=== PATIENT | male | born 1985 | race Caucasian/White ===

== ENCOUNTER 2024-10-16 14:25 | Inpatient (IN) | payer OTHER ==
[~2024-10-16] VITALS: Ht 172.7 cm; Wt 81.6 kg
[~2024-10-16 14:25] MED LIST: MVI, ADULT NO.1 10 ML, FOLIC ACID 1 MG, THIAMINE HCL 100 MG in SODIUM CHLORIDE 0.9% 1,0... IV ONE
[2024-10-16 14:28] VITALS: O2SAT 98
[2024-10-16] MEDS: SODIUM CHLORIDE 0.9% 1,000 ML IV ONE (14:45)
[2024-10-16] MEDS: CHLORDIAZEPOXIDE 25MG CAPSULE PO ONE (14:45)
[2024-10-16] MEDS: FOLIC ACID 1 MG, THIAMINE HCL 100 MG, MVI, ADULT NO.1 10 ML in DEXTROSE 5% WATER 1,000 ML IV ONE (16:30)
[2024-10-16] MEDS: LORAZEPAM 2MG/ML INJ IV ONE (16:33)
[2024-10-16] MEDS ORDERED: MAGNESIUM/ALUMINUM HYDROXIDE/SIMETHICONE 30ML UDC PO PRN (22:00)
[2024-10-16] MEDS ORDERED: ACETAMINOPHEN 325MG TABLET PO PRN ×2 (22:00)
[2024-10-16] MEDS ORDERED: ONDANSETRON HCL 4MG/2ML INJ IV PRN (22:00)
[2024-10-16] MEDS ORDERED: DOCUSATE SODIUM 100MG CAPSULE PO PRN (22:00)
[2024-10-16] MEDS ORDERED: IPRATROPIUM/ALBUTEROL 0.5-3(2.5)MG/3ML NEB HHN PRN (22:00)
[2024-10-16] MEDS ORDERED: LORAZEPAM 2MG/ML INJ IV PRN ×2 (22:00)
[2024-10-16] MEDS ORDERED: GUAIFENESIN 200MG/10ML SUGAR FREE UDC PO PRN (22:00)
[2024-10-16] MEDS ORDERED: CLONIDINE 0.1MG TABLET PO PRN (22:00)
[2024-10-16 22:31] LABS: BASOPHILS % 0.4 % (0.0-2.0); HEMOGLOBIN. 14.7 g/dL (14.0-18.0); LYMPHOCYTES % 8.2 % (20.0-50.0); MEAN CORPUSCULAR HGB CONC 35.1 g/dL (31.0-37.0); MEAN CORPUSCULAR VOLUME 82.7 fL (80.0-94.0); MONOCYTES % 9.3 % (2.0-8.0); NEUTROPHILS % 82.1 % (40.0-76.0); RED BLOOD CELL COUNT 5.08 mill/uL (4.7-6.1); WHITE BLOOD COUNT 11.9 x1000/uL (4.5-11.0)
[2024-10-16 22:40] LABS: CHLORIDE 93 mEq/L (98-107); SODIUM 130 mEq/L (136-145)
[2024-10-16 22:41] LABS: CALCIUM 8.6 mg/dL (8.7-10.4); CARBON DIOXIDE 26 mEq/L (21-32)
[2024-10-16 22:44] LABS: DIFFERENTIAL COMMENT 1
[2024-10-16 22:46] LABS: CREATININE 0.5 mg/dL (0.6-1.3); GLUCOSE 85 mg/dL (70-105); UREA NITROGEN BLOOD 8 mg/dL (9-23)
[2024-10-16 22:47] LABS: ALANINE AMINOTRANSFERASE 72 IU/L (10-49)
[2024-10-16 22:48] LABS: ALBUMIN 4.1 g/dL (3.2-4.8); AMMONIA 26 uMol/L (<32); ASPARTATE AMINOTRANSFERASE 285 IU/L (<34); BILIRUBIN TOTAL 1.2 mg/dL (0.1-1.0); PHOSPHORUS 1.4 mg/dL (2.5-4.9); PROTEIN TOTAL 6.4 g/dL (6.0-8.3); PROTHROMBIN TIME 11.3 sec (9.6-11.0)
[2024-10-16 22:55] LABS: ETHANOL BLOOD < 10 mg/dL (<10); POTASSIUM 2.6 mEq/L (3.5-5.1)
[2024-10-16] MEDS: THIAMINE HCL 100MG TABLET PO SCH (22:55)
[2024-10-16] MEDS: PANTOPRAZOLE SODIUM 40 MG/VIAL IV SCH (22:55)
[2024-10-16 23:03] LABS: CREATINE KINASE 17721 IU/L (46-171); HEPATITIS B SURFACE ANTIGEN NEGATIVE (Negative)
[2024-10-16 23:11] LABS: LACTIC ACID 2.1 mmol/L (0.4-2.0)
[2024-10-16 23:17] LABS: MEAN PLATELET VOLUME 8.2 fl (7.4-10.4); PLATELET 63 x1000/uL (130-400)
[2024-10-16 23:23] LABS: HEPATITIS A AB IGM NEGATIVE (Negative)
[2024-10-16 23:24] LABS: HEPATITIS B CORE AB IGM NEGATIVE (Negative); HEPATITIS C AB NON REACTIVE (Neg) (Negative)
[2024-10-16] MEDS: POTASSIUM CHLORIDE 20MEQ TABLET SR PO NR (23:36)
[2024-10-17] MEDS: POTASSIUM PHOSPHATE 30 MMOL in DEXT 5% WATER 500 ML IV NR (01:00)
[2024-10-17] MEDS: CHLORDIAZEPOXIDE 5 MG CAPSULE PO SCH (06:36)
[2024-10-17 10:35] LABS: CHLORIDE 95 mEq/L (98-107); POTASSIUM 2.9 mEq/L (3.5-5.1); SODIUM 131 mEq/L (136-145)
[2024-10-17 10:36] LABS: CALCIUM 8.8 mg/dL (8.7-10.4); CARBON DIOXIDE 24 mEq/L (21-32)
[2024-10-17 10:41] LABS: CREATININE 0.6 mg/dL (0.6-1.3); GLUCOSE 113 mg/dL (70-105); UREA NITROGEN BLOOD 7 mg/dL (9-23)
[2024-10-17 10:42] LABS: TRIGLYCERIDE 93 mg/dL (0-150)
[2024-10-17 10:43] LABS: LDL CHOLESTEROL 53 mg/dL (5-100)
[2024-10-17 10:44] LABS: CHOLESTEROL 179 mg/dL (<200); HDL CHOLESTEROL 98 mg/dL (>55); PHOSPHORUS 1.9 mg/dL (2.5-4.9); T4 FREE 1.14 ng/dL (0.89-1.76); TROPONIN I HIGH SENSITIVITY 98 ng/L (3.0-53)
[2024-10-17 10:45] LABS: THYROID STIMULATING HORMONE 0.96 uIU/mL (0.55-4.78)
[2024-10-17] MEDS: MVI, ADULT NO.1 10 ML, FOLIC ACID 1 MG, THIAMINE HCL 100 MG in SODIUM CHLORIDE 0.9% 1,0... IV ONE (11:09)
[2024-10-17] MEDS: SODIUM CHLORIDE 0.9% 1,000 ML IV SCH (11:09)
[2024-10-17] MEDS: FOLIC ACID 1MG TABLET PO SCH (11:09)
[2024-10-17 12:20] VITALS: BP 149/85; PULSE 116; RESP 20; TEMP 36.5848
[2024-10-17] MEDS: POTASSIUM PHOSPHATE 30 MMOL in SODIUM CHLORIDE 0.9% 490 ML IV NR (15:07)
[2024-10-17 16:00] VITALS: BP 130/88; PULSE 109; RESP 20; TEMP 37.16964; O2SAT 97
[2024-10-17 18:46] LABS: TROPONIN I HIGH SENSITIVITY 66 ng/L (3.0-53)
[2024-10-17 20:00] VITALS: BP 143/85; PULSE 116; RESP 20; TEMP 36.22512; O2SAT 96
[2024-10-17] MEDS: POTASSIUM CHLORIDE 30 MEQ in DEXT 5%/0.9% NACL 985 ML IV SCH (21:31)
[2024-10-18] VITALS: BP 141/101; PULSE 100; RESP 20; TEMP 36.28068; O2SAT 98
[2024-10-18 04:00] VITALS: BP 126/87; PULSE 101; RESP 18; TEMP 36.28068; O2SAT 98
== END 2024-10-18 06:40 | disposition left against medical advice (07) | DRG 101 ==
LOC: ER 14:25 → EDBEDREQTM 21:29 → EDBEDREQ 21:29 → 7WST 10-17 12:02
PROVIDERS: ADMIT Internal Medicine; ATTEND Internal Medicine
DX: G40.89 Other seizures (principal); E87.1 Hypo-osmolality and hyponatremia; F10.239 Alcohol dependence with withdrawal, unspecified; K92.0 Hematemesis; M62.82 Rhabdomyolysis; E83.39 Other disorders of phosphorus metabolism; E87.6 Hypokalemia; F17.210 Nicotine dependence, cigarettes, uncomplicated; F32.A Depression, unspecified; F41.9 Anxiety disorder, unspecified; K76.0 Fatty (change of) liver, not elsewhere classified; Y90.0 Blood alcohol level of less than 20 mg/100 ml; Z53.29 Procedure and treatment not carried out because of patient's decision for other reasons; R16.0 Hepatomegaly, not elsewhere classified; Z79.899 Other long term (current) drug therapy
CPT/HCPCS: 36415; 71045; 76700; 80048; 80053; 80061; 80320; 82140; 82550; 83036; 83605; 83735; 84100; 84145; 84439; 84443; 84484; 85025; 86705; 86709; 87340; 93005; 93970; 99291; J2060; J2470; J3411; J3480; J3490; J7030; J7040; J7042; J7060; J7070; G0480